=== PATIENT | female | born 1985 | race Caucasian/White ===

== ENCOUNTER 2016-09-06 01:59 | Day surgery (SDC) | payer OTHER ==
[~2016-09-06] VITALS: Ht 162.6 cm; Wt 87.0 kg
[2016-09-06] VITALS (16 sets, daily range): BP systolic 101–128; BP diastolic 58–81; PULSE 100–116; RESP 12–20; O2SAT 94–98
[~2016-09-06 01:59] MED LIST: LANS15TA3 PO; METO25TA3 PO; PANT40TA3 PO
[2016-09-06] MEDS ORDERED: 0.9% Sodium Chloride 1,000 ML IV SCH (09:31)
[2016-09-06] MEDS ORDERED: Heparin 10,000 Unit/1,000 mL NS Premix IV ONE (11:45)
[2016-09-06] MEDS ORDERED: Heparin 1,000 Unit/1,000mL NS Premix IV ONE (11:45)
[2016-09-06 12:38] LABS: BASOPHILS % (AUTO) 0.4 % (0-3); EOSINOPHILS % (AUTO) 0.6 % (0-5); Mean Corpuscular Hemoglobin 29.1 pg (27.0-35.0); Mean Corpuscular Volume 87.7 fL (81-100); NEUTROPHILS % (AUTO) 80.5 % (40-74); Platelet Count 387 bil/L (150-400)
[2016-09-06 12:51] LABS: INR 0.89 ratio
[2016-09-06] MEDS ORDERED: fentaNYL-PF 50 mCg/mL 2 mL Inj ONE ×4 (13:16→15:16)
[2016-09-06] MEDS ORDERED: Isoproterenol 200 mCg/50 mL D5W IV IV ONE ×2 (15:05→15:25)
[2016-09-06] MEDS ORDERED: Ondansetron 2 mg/mL 2 mL Inj IVPUSH PRN (15:55)
[2016-09-06] MEDS ORDERED: HYDROcodone-APAP 5-325 mg Tablet PO PRN (15:55)
--- NOTE | 2016-09-06 20:13 | NUR ---
[facility] Patient admitted to [facility] bed 2 for cardiac ablation at 1200. Family at bedside. Patient denies pain but but does express anxiety. HL placed and labs obtained. ECG 12 and consent in chart. History and medications reviewed. Pre-procedure teaching done and questions answered. Patient returned from [employer] at 1600. ECG 12 obtained and MD reviewed. No bleeding or hematoma at right or left groin venous punctures. Pedal pulses present. C/O right groin pain and medicated with vicodin X 1 with relief. Prior to discharge patient eating, ambulatory and void. Instructions reviewed with patient and family, written instructions given and questions answered. Home with family at 2014.
--- NOTE | 2016-09-07 00:20 | PROCED ---
[address] [address] PROCEDURE NOTE PATIENT: DOUGLAS SMITH : 1985 MR#: [id number] ADMIT: 09/06/2016 JOB ID: [id number] DATE OF SERVICE: 09/06/2016 PREOPERATIVE DIAGNOSIS(ES): Drug-refractory paroxysmal supraventricular tachycardia. POSTOPERATIVE DIAGNOSIS(ES): Atrioventricular sonam reentry tachycardia, status post slow pathway modification. PROCEDURES PERFORMED: 1. Comprehensive electrophysiology study with left atrial pacing recording via the coronary sinus catheter. 2. Three-dimensional electroanatomic mapping using the CARTO 3 system. 3. Supraventricular tachycardia ablation (atrial ablation; slow pathway modification). 4. Drug provocation with isoproterenol. 5. Fluoroscopy. SURGEON: Handy Montenegro MD. GYPSUM BLOCK SETTER: Pat Russo , Luke Brady PA-C. ANESTHESIA: Bolus dosing of Versed and fentanyl were utilized for an appropriate level of sedation. INDICATION: The patient is a pleasant 30-year-old woman with a structurally normal heart and a long-lasting history of drug-refractory paroxysmal SVT. After a discussion of the risks and benefits of catheter-based mapping ablation, she opted to proceed. PROCEDURAL DESCRIPTION: Following informed consent, the patient was taken to the EP laboratory in a fasting nonsedated state, where she was prepped in the usual sterile fashion. The bilateral groins were infiltrated with 1% lidocaine. Then, using the modified Seldinger technique, two 6-Slovenian sheaths were inserted in the left femoral vein. A 7 and an 8-Slovenian sheath were inserted into the right femoral vein. Under fluoroscopic guidance, a quadripolar catheter was advanced to the RV apex and a CRD2 quadripolar catheter was advanced to the His position. A deflectable decapolar catheter was advanced into the coronary sinus with the most proximal at the os of the sinus. A comprehensive electrophysiology study was undertaken with right atrial pacing recording, right ventricular , left atrial pacing recording via the coronary sinus catheter. Retrograde conduction showed a concentric atrial activation pattern with a retrograde jump. Antegrade conduction showed an antegrade jump and ultimately induction of the patient's clinical tachycardia. This was a regular narrow tachycardia at a cycle length of 300 msec. VA time was zero msec. Earliest atrial activation was along the septum. Induction was with an antegrade jump. Single extra stimulus pacing was performed and again induction was gotten with an antegrade jump. RV apical entrainment led to a pseudo VA AV response with a post pacing interval tachycardia cycle length of 117 msec. Taken together, this data was consistent with AV sonam reentry tachycardia. Slow pathway modification was therefore undertaken. An F curve 4 mm nonirrigated ablation catheter was brought to the field and advanced to the right atrium. A three-dimensional electroanatomic map of the right atrium, tricuspid annulus and triangle of Ibarra was performed using the CARTO 3 system. Fifty-watt ablation lesions were placed at the base of the triangle of Ibarra in the region of the slow pathway. Ultimately, the last of these led to conducted junctional beats. Aggressive induction maneuvers were undertaken both on and off isoproterenol at a dose of 2 mcg/minute. For 20-30 minutes post ablation, there was an antegrade jump with single echoes only, no more than one echo and no dysrhythmia was inducible. This therefore concluded our procedure. All catheters and sheaths were removed. Manual pressure was held for hemostasis. The patient was transferred to the intensive care unit for monitoring, bedrest and discharge. COMPLICATIONS: None. ESTIMATED BLOOD LOSS: Negligible. FINDINGS: 1. Baseline rhythm was sinus with an R interval of 551 msec, NJ 112 msec, QT 349 msec. 2. Intracardiac intervals: AH interval 67 msec, HV 44 msec. Post ablation AH is 71 msec, HV is 42 msec. 3. Retrograde conduction: Atrial activation was concentric. A retrograde jump was seen at 300 msec at a [address] VERP is 220 msec at a [address] 4. Antegrade conduction. Dual AV sonam physiology was identified as described above with an antegrade jump leading to the induction of the patient's clinical tachycardia. 5. Slow pathway modification for inducible AV sonam reentry tachycardia with an antegrade jump and single echoes post ablation. IMPRESSION: Successful slow pathway modification for atrioventricular sonam reentry tachycardia. PLAN: 1. Bedrest x4 hours. 2. Aspirin 325 mg p.o. daily x1 month. 3. Discontinue beta blockade. 4. Follow up with myself or Luke Brady in clinic in 3-4 weeks. ATTENDING STATEMENT: I, Handy Montenegro MD, electrophysiology attending, was present for and supervised/performed all aspects of this procedure.
== END 2016-09-06 23:59 | disposition home or self-care (01) ==
LOC: SOUO 01:59
PROVIDERS: ATTEND Internal Medicine Cardiovascular Disease
DX: I47.1 Supraventricular tachycardia (principal); F17.220 Nicotine dependence, chewing tobacco, uncomplicated
CPT/HCPCS: 36415; 80048; 84703; 85025; 85610; 93005; 93613; 93621; 93653; 99152; 99153; C1730; C1732; J0131; J1644; J2250; J3010